=== PATIENT | male | born 1990 | race Caucasian/White ===

== ENCOUNTER 2024-01-16 17:42 | Emergency (ER) | payer SELFPAY ==
[~2024-01-16] VITALS: Ht 175.3 cm; Wt 93.6 kg
[2024-01-16 17:54] VITALS: PULSE 125; RESP 20; TEMP 98.1
[2024-01-16] MEDS ORDERED: ULTRAM 50MG50 MG PO (19:41)
[2024-01-16 19:54] VITALS: BP 138/78; PULSE 89; RESP 18; TEMP 98.1; O2SAT 99
== END 2024-01-16 19:54 | disposition home or self-care (01) ==
LOC: FSED 17:53
DX: M25.512 Pain in left shoulder (principal); S46.002A Unspecified injury of muscle(s) and tendon(s) of the rotator cuff of left shoulder, initial encounter
CPT/HCPCS: 99283